=== PATIENT | male | born 1980 | race Caucasian/White ===

== ENCOUNTER → 2017-11-28 | Outpatient (CLI) | payer OTHER | LOC: BMCIMAGING 16:34 | PROVIDERS: ATTEND Family Medicine | DX: M79.645 Pain in left finger(s) (principal) ==

== ENCOUNTER 2018-12-25 11:21 | Emergency (ER) | payer OTHER ==
[2018-12-25 11:27] VITALS: BP 145/60
[2018-12-25] MEDS ORDERED: PROPARACAINE 0.5% 15 ML OPHT DROP ONE (11:34)
[2018-12-25] MEDS ORDERED: FLUORESCEIN SODIUM 1 MG STRIP OP ONE (11:34)
--- NOTE | 2018-12-25 11:48 | EDPHY ---
H & P Stated Complaint: right eye tissue injury Time Seen by Provider: 12/25/18 11:33 HPI/ROS: CHIEF COMPLAINT: Eyelid swelling HISTORY OF PRESENT ILLNESS: The patient is a 38-year-old healthy man who wears glasses comes to the emergency department complaining of some swelling to his right upper eyelid. He noticed it about 2 days ago. He has had mild watery discharge. No erythema. No vision changes. No pain. He did attend [facility] last week wearing a gas mask at several points that was very tight fitting. He wonders if this is contributing. Severity: Moderate Modifying factors: None REVIEW OF SYSTEMS: Constitutional: denies: chills, fever, recent illness, recent injury EENTM: See HPI denies: blurred vision, double vision, nose congestion Respiratory: denies: cough, shortness of breath Cardiac: denies: chest pain, irregular heart rate, lightheadedness, palpitations Gastrointestinal/Abdominal: denies: abdominal pain, diarrhea, nausea, vomiting, blood streaked stools Genitourinary: denies: dysuria, frequency, hematuria, pain Musculoskeletal: denies: joint pain, muscle pain Skin: denies: lesions, rash, jaundice, bruising Neurological: denies: headache, numbness, paresthesia, tingling, dizziness, weakness Hematologic/Lymphatic: denies: blood clots, easy bleeding, easy bruising Immunologic/allergic: denies: HIV/AIDS, transplant 10 systems reviewed and negative except as noted EXAM: GENERAL: Well-appearing, well-nourished and in no acute distress. HEAD: Atraumatic, normocephalic. EYES: Pupils equal round and reactive to light, extraocular movements intact, sclera anicteric, conjunctiva are normal. Patient has slight bruising and minimal swelling to the right upper eyelid and firmness to the lacrimal gland. Mild tenderness. No abrasions seen on slit-lamp exam. No cell and flare. Normal reactive pupil. Normal visual acuity. No discharge or erythema. ENT: TMs normal, nares patent, oropharynx clear without exudates. Moist mucous membranes. NECK: Normal range of motion, supple without lymphadenopathy or JVD. LUNGS: Breath sounds clear to auscultation bilaterally and equal. No wheezes rales or rhonchi. HEART: Regular rate and rhythm without murmurs, rubs or gallops. ABDOMEN: Soft, nontender, normoactive bowel sounds. No guarding, no rebound. No masses appreciated. BACK: No CVA tenderness, no spinal tenderness, step-offs or deformities EXTREMITIES: Normal range of motion, no pitting or edema. No clubbing or cyanosis. NEUROLOGICAL: Cranial nerves II through XII grossly intact. Normal speech, normal gait. 5/5 strength, normal movement in all extremities, normal sensation , normal reflexes PSYCH: Normal mood, normal affect. SKIN: Warm, dry, normal turgor, no visible rashes or lesions. Source: Patient Exam Limitations: No limitations - Personal History Current Tetanus/Diphtheria Vaccine: Yes Current Tetanus Diphtheria and Acellular Pertussis (TDAP): Yes Tetanus Vaccine Date: 2013 - Medical/Surgical History Hx Asthma: Yes Hx Chronic Respiratory Disease: No Hx Diabetes: No Hx Cardiac Disease: No Hx Renal Disease: No Hx Cirrhosis: No Hx Alcoholism: No Hx HIV/AIDS: No Other PMH: ortho surgery, tonsilectomy - Social History Smoking Status: Never smoked Constitutional: Initial Vital Signs Temperature (C) 37 C 12/25/18 11:23 Heart Rate 66 12/25/18 11:23 Respiratory Rate 14 12/25/18 11:23 Blood Pressure 145/60 H 12/25/18 11:23 O2 Sat (%) 98 12/25/18 11:23 O2 Delivery Mode Room Air Allergies/Adverse Reactions: No Known Allergies Allergy (Unverified 02/15/14 19:42) Home Medications: Medication Instructions Recorded Albuterol Inhaler Hfa 02/15/14 Dulera 100 Mcg/5 Mcg Inhaler 02/15/14 Pentoxifylline 02/15/14 Medical Decision Making ED Course/Re-evaluation: 11:55 p.m. the patient has slightly inflamed and tender lacrimal gland. Will treat with warm compresses and have him follow up with Ophthalmology in the next several days. No sign of corneal abrasion or foreign body or conjunctivitis. No systemic symptoms. No fever. No body aches or joint aches. No trouble with his saliva. He has an copyman already but cannot remember the name. Differential Diagnosis: Partial list of the Differential diagnosis considered include but were not limited to; conjunctivitis, lack a mole gland inflammation, obstruction, and although unlikely based on the history and physical exam, I also considered mom' s, Sjogren's, lymphoma. I discussed these differential diagnoses and the plan with the [patient] as well as the usual and expected course. The [patient understands] that the diagnosis is provisional and that in medicine we are not always correct and that further workup is often warranted. Usual and customary warnings were given. All of the [patient's] questions were answered. The [ patient was] instructed to return to the emergency department should the symptoms at all worsen or return, otherwise to followup with the physician as we discussed. Departure - Departure Disposition: Home, Routine, Self-Care Clinical Impression: Dacryoadenitis Qualifiers: Laterality: right Qualified Code(s): H04.001 - Unspecified dacryoadenitis, right lacrimal gland Condition: Fair Instructions: Blocked Tear Duct (ED) Additional Instructions: Warm compresses as discussed Referrals: NONE *PRIMARY CARE P,. [Primary Care Provider] - As per Instructions Yoav Zacarias MD [Medical Doctor] - 2-3 days, call for appt.
== END 2018-12-25 11:54 | disposition home or self-care (01) ==
DX: H04.001 Unspecified dacryoadenitis, right lacrimal gland (principal)